=== PATIENT | female | born 1950 | race Caucasian/White ===

== ENCOUNTER → 2017-01-31 | Outpatient (CLI) | payer BC ==
[2017-01-31 10:16] LABS: CHOLESTEROL/HDL RATIO 2.1
== END | disposition home or self-care (01) ==
LOC: C.LAB 09:09
PROVIDERS: ATTEND Family Medicine
DX: E78.2 Mixed hyperlipidemia (principal); E16.2 Hypoglycemia, unspecified

== ENCOUNTER → 2017-07-11 | Outpatient (CLI) | payer BC ==
--- NOTE | 2017-07-11 13:54 | MAMMOGRAPHY REPORT ---
BILATERAL DIGITAL SCREENING MAMMOGRAM TOMOSYNTHESIS WITH CAD: 07/11/2017 CLINICAL HISTORY: Routine screening. Patient has no complaints. TECHNIQUE: Breast tomosynthesis in addition to standard 2D mammography was performed. Current study was also evaluated with a Computer Aided Detection (CAD) system. COMPARISON: Comparison is made to exams dated: 04/03/2016 mammogram, 04/14/2015 mammogram, 5 stereotactic biopsy, 04/04/2015 mammogram, 03/22/2015 mammogram, and 08/15/2010 mammogram - [facility]. BREAST COMPOSITION: There are scattered areas of fibroglandular density in both breasts. FINDINGS: No suspicious masses, calcifications, or areas of architectural distortion are noted in ei ther breast. There has been no significant interval change compared to prior exams. A biopsy clip is again noted in the left 12:00 breast. Left breast asymmetries are stable compared to prior exams. IMPRESSION: ACR BI-RADS CATEGORY 2: BENIGN There is no mammographic evidence of malignancy. A 1 year screening mammogram is recommended. The pa tient will receive written notification of the results. Approximately 10% of breast cancers are not detected with mammography. A negative mammographic report should not delay biopsy if a clinically suggestive mass is present. Lynette Mcnulty M.D. /:07/11/2017 12:45:18 Director Of Digital Technology: Vera Mosquera, [facility] letter sent: Normal 1/2 BI-RADS Code: ACR BI-RADS Category 2: Benign
== END | disposition home or self-care (01) ==
LOC: C.MAMM 10:40
PROVIDERS: ATTEND Family Medicine
DX: Z12.31 Encounter for screening mammogram for malignant neoplasm of breast (principal)

== ENCOUNTER 2022-03-25 17:11 | Observation (INO) ==
[2022-03-25 17:42] LABS: Basophils # (auto) 0.07 K/uL (0-0.2); Basophils % (auto) 0.6 %; Eosinophils # (auto) 0.48 K/uL (0-0.50); Hematocrit (blood only) 44.5 % (34.1-44.9); Hemoglobin 14.5 g/dl (12.0-16.0); Immature Granulocytes # (auto) 0.04 K/uL (0.00-0.02); Immature Granulocytes % (auto) 0.3 %; Lymphocytes # (auto) 1.36 K/uL (1.2-3.4); Lymphocytes % (auto) 11.4 %; Mean Corpuscular Hgb Conc 32.6 g/dL (32.0-36.0); Mean Corpuscular Volume 85.9 fL (80.0-100.0); Mean Platelet Volume 10.5 fL (9.4-12.3); Monocytes # (auto) 0.62 K/uL (0.24-0.82); Monocytes % (auto) 5.2 %; Neutrophils # (auto) 9.38 K/uL (1.4-6.5); Neutrophils % (auto) 78.5 %; Platelet Count 227 K/uL (130-400); RDW Coefficient of Variation 13.8 % (11.5-14.5); RDW Standard Deviation 43.1 fL (36.4-46.3); Red Blood Count 5.18 M/uL (3.93-5.22); White Blood Count 11.95 K/ul (4.8-10.8)
[2022-03-25 17:55] LABS: Partial Thromboplastin Time 26.5 Seconds (21.0-31.0); Prothrombin Time 10.4 Seconds (9.0-12.0)
[2022-03-25 18:06] LABS: Albumin Globulin Ratio 1.4 (0.9-2); Albumin Level 4.6 gm/dl (3.4-5.0); BUN Creatinine Ratio 18.6 (10-20); Bilirubin,Total 0.4 mg/dl (0.2-1.0); Calcium 9.9 mg/dl (8.5-10.1); Creatinine Clr Calc Pharmacy 45.3 ml/min; Est GFR (Non-African American) 56.1 ml/min; Globulin 3.2 gm/dl (2.5-4.0); Magnesium 1.7 mg/dl (1.7-2.4); Potassium 4.1 mmol/L (3.5-5.1); Total Protein 7.8 gm/dl (6.0-8.3)
[2022-03-25] MEDS ORDERED: OPTIRAY 320 500ml IV ONE (18:38)
--- NOTE | 2022-03-25 19:39 | XRay Report ---
XR chest 1V not portable HISTORY: 71 years-old Female SOB acute shortness of breath COMPARISON: None TECHNIQUE: PA view of the chest FINDINGS: Cardiomediastinal and hilar silhouettes are within normal limits. No pneumothorax, pleural effusion, airspace consolidation or overt pulmonary edema. Right shoulder rotator cuff calcific tendinosis. The bones appear grossly intact. IMPRESSION: No acute process. ACT 112: Negative or not required by law. The above report was generated using voice recognition software. It may contain grammatical, syntax o r spelling errors. Electronically signed by: Jeremy Molina M.D. 03/25/2022 6:14 PM
--- NOTE | 2022-03-25 19:40 | CT Scan Report ---
CT angio chest PE protocol CT DOSE: 319.94 mGy.cm HISTORY: 71 years-old Female with SOB, recent COVID, eval PE. Acute shortness of breath TECHNIQUE: Multiple CTA images of the chest were obtained after the intravenous administration of 85 ml Optiray. Coronal and sagittal MIPS were obtained from the axial data set and were submitted for r [employer]. All measurements were obtained according to NASCET criteria. A dose lowering technique was ut ilized adhering to the principles of ALARA. COMPARISON: Chest radiograph of same day FINDINGS: CTA: Mild cardiomegaly. There is no pericardial effusion. Mild coronary artery calcifications. No thoracic aortic aneurysm. Suboptimal violation of the pulmonary arterial tree secondary to contrast bolus and respiratory motion artifact. No central pulmonary emboli are identified. CT CHEST: No thyroid nodule or lymphadenopathy identified. Left Bochdalek hernia. No pneumothorax, pleural effu dodie, airspace consolidation or overt pulmonary edema. There are no suspicious pulmonary nodules or m asses identified. Central airways are patent. No acute process of the imaged upper abdomen. Hepatic steatosis. Unremarkable soft tissues. No acute fracture identified. Right shoulder rotator cuff calcific tendinosis. Degenerative changes of the vivian ulders and spine. Mild mid thoracic dextroscoliosis. 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 IMPRESSION: 1. No acute intrathoracic abnormality. 2. Limited evaluation of the pulmonary arterial tree as above. No central pulmonary emboli identified . 3. Hepatic steatosis. ACT 112: Negative or not required by law. The above report was generated using voice recognition software. It may contain grammatical, syntax o r spelling errors. Electronically signed by: Jeremy Molina M.D. 03/25/2022 6:54 PM
[2022-03-25] MEDS ORDERED: ALBUT/IPRATROP 3MG/0.5MG NEB 3 ML VIAL NEB ONE (19:51)
[2022-03-25] MEDS ORDERED: methylPREDNISolone 125 MG/2 ML VIAL IV STA (19:51)
[2022-03-25] MEDS ORDERED: guaiFENesin 600 MG TABCR PO STA (19:51)
[2022-03-25] MEDS ORDERED: SODIUM CHLORIDE 0.9% 1000ML 1,000 ML IV ONE (19:53)
[2022-03-25 20:08] LABS: Phosphorus 3.6 mg/dl (2.5-4.9)
[2022-03-25 20:21] LABS: Troponin I High Sensitivity 131.4 pg/ml (0-14)
--- NOTE | 2022-03-25 20:53 | Emergency Department Note ---
Impression & Plan Asthma exacerbation, Elevated troponin, Hypertension, Dyspnea on minimal exertion ED Provider Note NAME: RUBIA COLE AGE: 71 SEX: F ARRIVES VIA: Walk-In INFORMANT: Patient ED PROVIDER(S): Brian Blackmon MD CHIEF COMPLAINT: SOB, referred. PLAN: Disposition: Admit MEDICAL DECISION MAKING: The patient is a pleasant 71-year-old woman with a past medical history of hypertension, COVID-19 in beginning of February where she reports her more pronou nced symptoms resolved within the first week or so but her residual wheeze and cough never went away, who presents to the emergency department today referred by her PCPs office for worsening shortness of breath that began today where she feels she is wheezing more and cannot catch her breath. She denies chest pain, nausea, vomiting, diarrhea or urinary symptoms. She reports she has a history of asthma as a child and then once had wheezing with bronchitis but did not have chronic asthma per se. She reports she has been using her inhalers at home but does not feel they are helping. She denies n/v/d or symptoms. On arrival the patient is in no acute distress, afebrile with BP 190s/100s, HR 100s, with O2 saturation in the mid to upper 90s on room air. She has normal respiratory effort. She appears clinically dry. She has diffuse wheezes bilaterally. The patient did arrive to emergency department during a time of high volume and acuity with prolonged emergency department waiting times and critical pathways were initiated. Blood work and CT imaging were ordered. EKG demonstrates anterior T wave inversions without prior for comparison and no overt ST elevation or depression. Chest x-ray negative for acute cardiopulmonary process. WBC 11.9K nonspecific. H/H and platelets within normal limits. Chemistry without metabolic acidosis. Electrolytes and LFTs without significant abnormality. High-sensitivity troponin was elevated at 131, nonspecific but in the setting of her ongoing bronchospasm with shortness of breath and hypertension. CTA of the chest was performed and was negative for pneumonia or PE. No pleural effusions. Of note, the patient did ambulate to the bathroom and upon returning was with increased shortness of breath and O2 saturation was noted by RN to be 88-89% on room air with increased work of breathing and so was placed on supplemental oxygen. Given the patient's hypoxia with exertion and elevated troponin she did agree with plan for admission. Of note, the patient's blood pressure was elevated in the 190/100s however this was noted to improve with IV fluid hydration. Case was discussed with AILEEN White admitting resident with DARA De Leon hospitalist, who will evaluate the patient for admission. Triage Nursing notes reviewed and agree them. Prior medical records reviewed Differential diagnosis: Reactive airway disease, pneumonia, pneumothorax, COPD, CHF, infections, cardiac ischemia, pulmonary embolism, musculoskeletal, gastrointestinal, as well as other pathologies. ER treatment provided: See below. Diagnostics interpreted by me: ECG: Sinus tachycardia with first-degree AV block, 105 bpm, no ectopy, anterior T wave inversions are noted without prior EKG for comparison, no overt ST elevation or depression, QTC 45, QRS 66. Cardiac Monitoring: An order for continuous cardiac monitoring was placed and demonstrated Sinus tachycardia with first-degree AV block, 105 bpm, no ectopy. Laboratory studies: See below Imaging studies: See below Consultation(s): AILEEN White admitting resident with DARA De Leon hospitalist HPI: The patient is a pleasant 71-year-old woman with a past medical history of hypertension, COVID-19 in beginning of February where she reports her more pronounced symptoms resolved within the first week or so but her residual wheeze and cough never went away, who presents to the emergency department today referred by her PCPs office for worsening shortness of breath that began today where she feels she is wheezing more and cannot catch her breath. She denies chest pain, nausea, vomiting, diarrhea or urinary symptoms. She reports she has a history of asthma as a child and then once had wheezing with bronchitis but did not have chronic asthma per se. She reports she has been using her inhalers at home but does not feel they are helping. She denies n/v/d or symptoms. ROS: See above HPI for pertinent positives & negatives. A total of 10 systems reviewed and were otherwise negative. VITALS:See Below PHYSICAL EXAMINATION: GENERAL: Awake, alert, well-appearing, in no distress HENT: Normocephalic, atraumatic. Oropharynx with dry mucous membranes and otherwise unremarkable. EYES: Normal conjunctiva. Sclera non-icteric. NECK: Supple. No nuchal rigidity. FROM. No JVD. RESPIRATORY: Diffuse wheezes bilaterally. Normal respiratory effort. CARDIAC: Tachycardic rate, normal rhythm. Extremities warm and well perfused. Pulses equal. ABDOMEN: Soft, non-distended. No tenderness to palpation. No rebound or guarding. No masses. RECTAL: Deferred. MUSCULOSKELETAL: Chest examination reveals no tenderness. The back is symmetrical on inspection without obvious abnormality. There is no CVA tenderness to palpation. No joint edema. LOWER EXTREMITIES: Calves are equal size bilaterally and non-tender. No edema. No discoloration. NEURO: Normal sensorium. No sensory or motor deficits noted. SKIN: No rash or jaundice noted. 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 Hypertension Insomnia Osteopenia Surgical History History of dental surgery dental implant History of left breast biopsy benign History of tooth extraction Family History Mother Leukemia Cancer Hypertension Gall bladder disease Family history of diabetes mellitus Son Cancer Sister Hypertension Gall bladder disease Father Hypertension Grandmother (Maternal) Family history of diabetes mellitus Other No family history of adverse response to anesthesia Denies family history of Ovarian cancer Prostate cancer Myocardial infarction Breast cancer Colorectal cancer Social History Smoking Status: Never smoker Second Hand Exposure: No (parents smoked); Hx Alcohol Use: No Hx Substance Use: No Preferred Language: Tamazight Communication Ability: Effective Visual Impairment: No Limitations Hearing Ability: Normal Computer Customer Support Specialist Required: No Beliefs That Will Affect Care: None marital status: Current Living Situation: Spouse current occupational status: retired 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 Feels Safe at Home: Yes Childhood Exposure to Second-Hand Smoke: Yes caffeine: No Dental Care, Regularly: Yes Physical Activity Frequency: Does not Exercise Seatbelt Use: always Sunscreen Use: Yes Assistive Devices: Glasses Allergies Allergies Allergy/AdvReac Type Severity Reaction Status Date / Time No Known Allergies Allergy Verified 03/25/22 21:13 Home Meds Home Medications Medication Instructions Recorded Confirmed cholecalciferol (vitamin D3) 25 1,000 units PO QAM 01/14/19 03/25/22 mcg (1,000 unit) tablet multivitamin 1 tab PO DAILY 01/14/19 03/25/22 cyclobenzaprine 5 mg tablet 5 - 10 mg PO TID PRN muscle spasm 03/25/22 03/25/22 Previous Rx's Medication Instructions Recorded atenolol 25 mg tablet 25 mg PO DAILY #90 tabs 07/17/21 lisinopril 20 mg tablet 20 mg PO DAILY #90 tabs 08/21/21 sertraline 50 mg tablet 50 mg PO DAILY #90 tabs 10/24/21 alprazolam 0.5 mg tablet 0.5 mg PO Q8H PRN anxiety #30 tabs 12/07/21 albuterol sulfate 90 mcg/actuation 2 puff inhalation Q6H PRN 03/18/22 aerosol inhaler shortness of breath or wheezing #8.5 grams omeprazole 20 mg capsule,delayed 20 mg PO DAILY #90 caps 03/18/22 release Results & Data (ED) Vital Signs Vital Signs - 24 hr 03/25/22 17:15 03/25/22 19:12 03/25/22 19:27 Temperature 36.9 C Temperature Source Temporal Artery Scan Pulse Rate 111 H Pulse Rate [Apical] 110 H Respiratory Rate 20 20 Respiratory Effort / Characteristics Blood Pressure 192/96 H Blood Pressure [Right Arm] 194/115 H Blood Pressure Mean 128 Blood Pressure Mean [Right Arm] 141 Pulse Oximetry 96 98 98 Oxygen Delivery Method Room Air Room Air Oxygen Flow Rate Sepsis Recent Fever Within 48 Hours No Sepsis New/Unexplained Change in Mental Status N/A Sepsis Action Taken by Nursing No Action Required 03/25/22 20:42 03/25/22 20:25 03/25/22 20:48 Temperature Temperature Source Pulse Rate Pulse Rate [Apical] 105 H Respiratory Rate 26 H Respiratory Effort / Characteristics Spontaneous Blood Pressure Blood Pressure [Right Arm] Blood Pressure Mean Blood Pressure Mean [Right Arm] Pulse Oximetry 100 84 L 100 Oxygen Delivery Method Nasal Cannula Room Air Nasal Cannula Oxygen Flow Rate 2 2 Sepsis Recent Fever Within 48 Hours Sepsis New/Unexplained Change in Mental Status Sepsis Action Taken by Nursing Laboratory Data Attestation: I reviewed the patient's lab results. Result diagrams: 03/25/22 17:28 03/25/22 17:28 Lab Results 11/21/22 11/21/22 11/21/22 Range/Units 17:28 17:28 17:28 WBC 11.95 H (4.8-10.8) K/ul RBC 5.18 (3.93-5.22) M/uL Hgb 14.5 (12.0-16.0) g/dl Hct 44.5 (34.1-44.9) % MCV 85.9 (80.0-100.0) fL MCH 28.0 (25.0-34.0) pg MCHC 32.6 (32.0-36.0) g/dL RDW Std Deviation 43.1 (36.4-46.3) fL RDW Coeff of Otilia 13.8 (11.5-14.5) % Plt Count 227 (130-400) K/uL MPV 10.5 (9.4-12.3) fL Immature Gran % (Auto) 0.3 % Neut % (Auto) 78.5 % Lymph % (Auto) 11.4 % Mathews % (Auto) 5.2 % Eos % (Auto) 4.0 % Baso % (Auto) 0.6 % Neut # (Auto) 9.38 H (1.4-6.5) K/uL Lymph # (Auto) 1.36 (1.2-3.4) K/uL Mathews # (Auto) 0.62 (0.24-0.82) K/uL Eos # (Auto) 0.48 (0-0.50) K/uL Baso # (Auto) 0.07 (0-0.2) K/uL Immature Gran # (Auto) 0.04 H (0.00-0.02) K/uL PT 10.4 (9.0-12.0) Seconds INR 1.0 (0.9-1.1) APTT 26.5 (21.0-31.0) Seconds PTT Ratio 1.0 Sodium 141 (136-145) mmol/L Potassium 4.1 (3.5-5.1) mmol/L Chloride 104 (98-107) mmol/L Carbon Dioxide 29 (21-32) mmol/L Anion Gap 8 (3-11) BUN 19 (6-23) mg/dl Creatinine 1.02 (0.6-1.2) mg/dl Est Cr Clr Drug Dosing 45.3 ml/min Est GFR ( Amer) 65.0 ml/min Est GFR (Non-Af Amer) 56.1 ml/min BUN/Creatinine Ratio 18.6 (10-20) Glucose 135 H (70-99(Fasting)) mg/dl Calcium 9.9 (8.5-10.1) mg/dl Phosphorus (2.5-4.9) mg/dl Magnesium 1.7 (1.7-2.4) mg/dl Total Bilirubin 0.4 (0.2-1.0) mg/dl AST 23 (13-39) U/L ALT 23 (7-52) U/L Alkaline Phosphatase 58 (34-104) U/L Troponin I High Sens (0-14) pg/ml C-Reactive Protein (0-0.5) mg/dl Total Protein 7.8 (6.0-8.3) gm/dl Albumin 4.6 (3.4-5.0) gm/dl Globulin 3.2 (2.5-4.0) gm/dl Albumin/Globulin Ratio 1.4 (0.9-2) Procalcitonin (0-0.5) ng/ml Adenovirus (PCR) (NotDetected) B. pertussis DNA (PCR) (NotDetected) B.parapertussis DNA PCR (NotDetected) C. pneumoniae DNA (PCR) (NotDetected) Coronavirus OC43 (PCR) (NotDetected) Coronavirus HKU1 (PCR) (NotDetected) Coronavirus 229E (PCR) (NotDetected) SARS-CoV-2 (PCR) (NotDetected) Coronavirus NL63 (PCR) (NotDetected) Human Metapneumovir PCR (NotDetected) Influenza Type A (PCR) (NotDetected) Influenza Type B (PCR) (NotDetected) M. pneumoniae (PCR) (NotDetected) Parainfluenza 1 (PCR) (NotDetected) Parainfluenza 2 (PCR) (NotDetected) Parainfluenza 3 (PCR) (NotDetected) Parainfluenza 4 (PCR) (NotDetected) RSV (PCR) (NotDetected) Entero/Rhino (PCR) (NotDetected) 03/25/22 03/25/2203/25/22 Range/Units 17:28 17:28 20:18 WBC (4.8-10.8) K/ul RBC (3.93-5.22) M/uL Hgb (12.0-16.0) g/dl Hct (34.1-44.9) % MCV (80.0-100.0) fL MCH (25.0-34.0) pg MCHC (32.0-36.0) g/dL RDW Std Deviation (36.4-46.3) fL RDW Coeff of Otilia (11.5-14.5) % Plt Count (130-400) K/uL MPV (9.4-12.3) fL Immature Gran % (Auto) % Neut % (Auto) % Lymph % (Auto) % Mathews % (Auto) % Eos % (Auto) % Baso % (Auto) % Neut # (Auto) (1.4-6.5) K/uL Lymph # (Auto) (1.2-3.4) K/uL Mathews # (Auto) (0.24-0.82) K/uL Eos # (Auto) (0-0.50) K/uL Baso # (Auto) (0-0.2) K/uL Immature Gran # (Auto) (0.00-0.02) K/uL PT (9.0-12.0) Seconds INR (0.9-1.1) APTT (21.0-31.0) Seconds PTT Ratio Sodium (136-145) mmol/L Potassium (3.5-5.1) mmol/L Chloride (98-107) mmol/L Carbon Dioxide (21-32) mmol/L Anion Gap (3-11) BUN (6-23) mg/dl Creatinine (0.6-1.2) mg/dl Est Cr Clr Drug Dosing ml/min Est GFR ( Amer) ml/min Est GFR (Non-Af Amer) ml/min BUN/Creatinine Ratio (10-20) Glucose (70-99(Fasting)) mg/dl Calcium (8.5-10.1) mg/dl Phosphorus 3.6 (2.5-4.9) mg/dl Magnesium (1.7-2.4) mg/dl Total Bilirubin (0.2-1.0) mg/dl AST (13-39) U/L ALT (7-52) U/L Alkaline Phosphatase (34-104) U/L Troponin I High Sens 131.4 H* (0-14) pg/ml C-Reactive Protein (0-0.5) mg/dl Total Protein (6.0-8.3) gm/dl Albumin (3.4-5.0) gm/dl Globulin (2.5-4.0) gm/dl Albumin/Globulin Ratio (0.9-2) Procalcitonin < 0.05 (0-0.5) ng/ml Adenovirus (PCR) Not Detected (NotDetected) B. pertussis DNA (PCR) Not Detected (NotDetected) B.parapertussis DNA PCR Not Detected (NotDetected) C. pneumoniae DNA (PCR) Not Detected (NotDetected) Coronavirus OC43 (PCR) Not Detected (NotDetected) Coronavirus HKU1 (PCR) Not Detected (NotDetected) Coronavirus 229E (PCR) Not Detected (NotDetected) SARS-CoV-2 (PCR) Not Detected (NotDetected) Coronavirus NL63 (PCR) Not Detected (NotDetected) Human Metapneumovir PCR Not Detected (NotDetected) Influenza Type A (PCR) Not Detected (NotDetected) Influenza Type B (PCR) Not Detected (NotDetected) M. pneumoniae (PCR) Not Detected (NotDetected) Parainfluenza 1 (PCR) Not Detected (NotDetected) Parainfluenza 2 (PCR) Not Detected (NotDetected) Parainfluenza 3 (PCR) Not Detected (NotDetected) Parainfluenza 4 (PCR) Not Detected (NotDetected) RSV (PCR) Not Detected (NotDetected) Entero/Rhino (PCR) Not Detected (NotDetected) 03/25/22 Range/Units 21:23 WBC (4.8-10.8) K/ul RBC (3.93-5.22) M/uL Hgb (12.0-16.0) g/dl Hct (34.1-44.9) % MCV (80.0-100.0) fL MCH (25.0-34.0) pg MCHC (32.0-36.0) g/dL RDW Std Deviation (36.4-46.3) fL RDW Coeff of Otilia (11.5-14.5) % Plt Count (130-400) K/uL MPV (9.4-12.3) fL Immature Gran % (Auto) % Neut % (Auto) % Lymph % (Auto) % Mathews % (Auto) % Eos % (Auto) % Baso % (Auto) % Neut # (Auto) (1.4-6.5) K/uL Lymph # (Auto) (1.2-3.4) K/uL Mathews # (Auto) (0.24-0.82) K/uL Eos # (Auto) (0-0.50) K/uL Baso # (Auto) (0-0.2) K/uL Immature Gran # (Auto) (0.00-0.02) K/uL PT (9.0-12.0) Seconds INR (0.9-1.1) APTT (21.0-31.0) Seconds PTT Ratio Sodium (136-145) mmol/L Potassium (3.5-5.1) mmol/L Chloride (98-107) mmol/L Carbon Dioxide (21-32) mmol/L Anion Gap (3-11) BUN (6-23) mg/dl Creatinine (0.6-1.2) mg/dl Est Cr Clr Drug Dosing ml/min Est GFR ( Amer) ml/min Est GFR (Non-Af Amer) ml/min BUN/Creatinine Ratio (10-20) Glucose (70-99(Fasting)) mg/dl Calcium (8.5-10.1) mg/dl Phosphorus (2.5-4.9) mg/dl Magnesium (1.7-2.4) mg/dl Total Bilirubin (0.2-1.0) mg/dl AST (13-39) U/L ALT (7-52) U/L Alkaline Phosphatase (34-104) U/L Troponin I High Sens 133.4 H* (0-14) pg/ml C-Reactive Protein 0.71 H (0-0.5) mg/dl Total Protein (6.0-8.3) gm/dl Albumin (3.4-5.0) gm/dl Globulin (2.5-4.0) gm/dl Albumin/Globulin Ratio (0.9-2) Procalcitonin (0-0.5) ng/ml Adenovirus (PCR) (NotDetected) B. pertussis DNA (PCR) (NotDetected) B.parapertussis DNA PCR (NotDetected) C. pneumoniae DNA (PCR) (NotDetected) Coronavirus OC43 (PCR) (NotDetected) Coronavirus HKU1 (PCR) (NotDetected) Coronavirus 229E (PCR) (NotDetected) SARS-CoV-2 (PCR) (NotDetected) Coronavirus NL63 (PCR) (NotDetected) Human Metapneumovir PCR (NotDetected) Influenza Type A (PCR) (NotDetected) Influenza Type B (PCR) (NotDetected) M. pneumoniae (PCR) (NotDetected) Parainfluenza 1 (PCR) (NotDetected) Parainfluenza 2 (PCR) (NotDetected) Parainfluenza 3 (PCR) (NotDetected) Parainfluenza 4 (PCR) (NotDetected) RSV (PCR) (NotDetected) Entero/Rhino (PCR) (NotDetected) Administered Medications Discontinued Medications Albuterol (Albut/Ipratrop 3mg/0.5mg Neb 3 Ml Vial) 12 ml NEB ONE ONE; Protocol Stop: 03/25/22 19:52 Last Admin: 03/25/22 20:39 Dose: 12 ml Documented By: AYSHA Guaifenesin (Guaifenesin 600 Mg Tabcr) 1,200 mg PO NOW STA Stop: 03/25/22 19:52 Last Admin: 03/25/22 20:13 Dose: 1,200 mg Documented By: SIERRA Sodium Chloride (Nss 1000ml) 1,000 mls @ 999 mls/hr IV .Q1H1M ONE Stop: 03/25/22 20:53 Last Infusion: 03/25/22 23:17 Dose: 0 mls/hr Documented By: Admin: 03/25/22 20:12 Dose: 999 mls/hr Documented By: SIERRA Ioversol (Optiray 320 500ml) 85 ml IV ONCE ONE Stop: 03/25/22 18:39 Last Admin: 03/25/22 18:38 Dose: 85 ml Documented By: JOE Methylprednisolone (Methylprednisolone 125 Mg/2 Ml Vial) 125 mg IV NOW STA Stop: 03/25/22 19:52 Last Admin: 03/25/22 20:13 Dose: 125 mg Documented By: SIERRA Imaging Data Radiologist's Impression: Chest X-Ray 03/25/22 17:20 XR chest 1V not portable HISTORY: 71 years-old Female SOB acute shortness of breath COMPARISON: None TECHNIQUE: PA view of the chest FINDINGS: Cardiomediastinal and hilar silhouettes are within normal limits. No pneumothorax, pleural effusion, airspace consolidation or overt pulmonary edema. Right shoulder rotator cuff calcific tendinosis. The bones appear grossly intact. IMPRESSION: No acute process. ACT 112: Negative or not required by law. The above report was generated using voice recognition software. It may contain grammatical, syntax or spelling errors. Electronically signed by: Jeremy Molina M.D. 03/25/2022 6:14 PM Chest CTA 03/25/22 17:34 CT angio chest PE protocol CT DOSE: 319.94 mGy.cm HISTORY: 71 years-old Female with SOB, recent COVID, eval PE. Acute shortness of breath TECHNIQUE: Multiple CTA images of the chest were obtained after the intravenous administration of 85 ml Optiray. Coronal and sagittal MIPS were obtained from the axial data set and were submitted for review. All measurements were obtained according to NASCET criteria. A dose lowering technique was utilized adhering to the principles of ALARA. COMPARISON: Chest radiograph of same day FINDINGS: CTA: Mild cardiomegaly. There is no pericardial effusion. Mild coronary artery calcifications. No thoracic aortic aneurysm. Suboptimal violation of the pulmonary arterial tree secondary to contrast bolus and respiratory motion artifact. No central pulmonary emboli are identified. CT CHEST: No thyroid nodule or lymphadenopathy identified. Left Bochdalek hernia. No pneumothorax, pleural effusion, airspace consolidation or overt pulmonary edema. There are no suspicious pulmonary nodules or masses identified. Central airways are patent. No acute process of the imaged upper abdomen. Hepatic steatosis. Unremarkable soft tissues. No acute fracture identified. Right shoulder rotator cuff calcific tendinosis. Degenerative changes of the shoulders and spine. Mild mid thoracic dextroscoliosis. 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 IMPRESSION: 1. No acute intrathoracic abnormality. 2. Limited evaluation of the pulmonary arterial tree as above. No central pulmonary emboli identified. 3. Hepatic steatosis. ACT 112: Negative or not required by law. The above report was generated using voice recognition software. It may contain grammatical, syntax or spelling errors. Electronically signed by: Jeremy Molina M.D. 03/25/2022 6:54 PM Discharge Plan Visit Data Chief Complaint: Shortness of Breath/Dyspnea Stated Complaint: SOB,COUGH,WHEEZING, ED Provider: Brian Blackmon Discharge Problem: Asthma exacerbation, Elevated troponin, Hypertension, Dyspnea on minimal e xertion Discharge Instructions Interventions: ED Discharge Assessment Last Done: 03/25/22 23:56
--- NOTE | 2022-03-25 20:59 | History & Physical Report ---
Date of Service March 25, 2022 Assessment & Plan (1) Asthma exacerbation: Plan: [id number] in severity. Likely exacerbated by COVID-19 and possibly further exacerbated by another respiratory viral illness. - respiratory biofire lepe-negative - procalcitonin negative, check CRP - s/p SoluMedrol 125mg in ED - continue with 40mg IV BID starting in AM - s/p Albuterol nebs in ED - continue with Xopenex Q6H scheduled and Q2H PRN (tachycardia) - continue pulmonary toilet: Mucinex 1200mg PO BID, incentive spirometry Q1HWA - currently on 2L/min NC (none at home) - wean as tolerated (2) Elevated troponin: Plan: hsTroponin 131.4, EKG with T-wave inversions in anterior leads but no ST abnormalities. Patient denies chest pain. Likely due to demand ischemia in context of asthma/tachycardia/hypertension. - check hsTroponin now and again in AM - PRN SL Nitro and PRN EKG for chest pain (3) Hypertension: Plan: Uncontrolled in the ED with BP up to 194/115 but thankfully down to 150s/100s on my examination. Likely in context of acute problems listed above. - continue home Atenolol and Lisinopril (last took earlier today) - PRN Lopressor 5mg IV for SBP >190 and/or DBP >110 (if HR tolerates) (4) GERD (gastroesophageal reflux disease): Plan: Protonix per hospital formulary (5) Grief reaction with prolonged bereavement: Plan: Continue home Xanax 0.5mg PO Q8H PRN as well as home Sertraline Plan FEN/GI: regular diet DVT Prophylaxis: Lovenox SQ Code Status: full code Disposition: med/tele History of Present Illness Chief Complaint: dyspnea Primary Care Provider: Lala Garcia MD Denise Aj is a 71yo female with PMHx significant for asthma, HTN, GERD, depression and h/o COVID-19 in early February who presented to [facility] ED on 03/25 for worsening shortness of breath and wheezing x1 day. Of note the patient had upper respiratory symptoms as well as cough/wheezing with her COVID-19 infection, and the cough/wheezing had persisted since onset of that infection. Patient saw her PCP 1 week ago for persistent symptoms and has taken Albuterol inhaler TID since then, without improvement in symptoms. Then patient developed shortness of breath, mostly with physical exertion, in addition to persistence cough/wheezing over last 24 hours so she came to ED. Patient had more significant asthma history as a child and also sometimes gets wheezing with colds/bronchitis that improves with Albuterol. Patient is a never smoker and denies alcohol/drug use. She is proficient in ADLs/iADLs and lives with her . In the ED the patient was hypertensive to 194/115 and tachycardic in 100s-110s. Tachypneic in mid 20s and SpO2 down to 84% on room air but improved to high 90s on 2L/min nasal cannula. EKG with sinus tachycardia 1st degree AV block and anterior T-wave inversions without ST abnormalities. Labs significant for hsTroponin 131.4 and WBC 11.95 (neutrophilic predominance and minimal L shift). Procalcitonin negative. Respiratory BioFire lepe-negative. Imaging unremarkable: CXR without consolidations/opacities and CTA chest without evidence of PE. Patient was given 1L NSS bolus, Albuterol nebs x1, Mucinex 1200mg PO, and SoluMedrol 125mg IV x1. Allergies Allergy/AdvReac Type Severity Reaction Status Date / Time No Known Allergies Allergy Verified 03/25/22 21:13 Home Medications Medication Instructions Recorded Confirmed Type cholecalciferol (vitamin D3) 25 1,000 units PO QAM 01/14/19 03/25/22 History mcg (1,000 unit) tablet multivitamin 1 tab PO DAILY 01/14/19 03/25/22 History atenolol 25 mg tablet 25 mg PO DAILY #90 tabs 07/17/21 03/25/22 Rx lisinopril 20 mg tablet 20 mg PO DAILY #90 tabs 08/21/21 03/25/22 Rx sertraline 50 mg tablet 50 mg PO DAILY #90 tabs 10/24/21 03/25/22 Rx alprazolam 0.5 mg tablet 0.5 mg PO Q8H PRN anxiety #30 tabs 12/07/21 03/25/22 Rx omeprazole 20 mg capsule,delayed 20 mg PO DAILY #90 caps 03/18/22 03/25/22 Rx release cyclobenzaprine 5 mg tablet 5 - 10 mg PO TID PRN muscle spasm 03/25/22 03/25/22 History albuterol sulfate 90 mcg/actuation 2 puff inhalation Q6H PRN 03/26/22 Rx aerosol inhaler shortness of breath or wheezing #8.5 grams prednisone 20 mg tablet 40 mg PO DAILY 5 days #10 tabs 03/26/22 Rx Past Med/Surg History Medical History GERD (gastroesophageal reflux disease) Grief reaction with prolonged bereavement History of melanoma upper back Hypertension Insomnia Osteopenia Surgical History History of dental surgery dental implant History of left breast biopsy benign History of tooth extraction Family History Mother Leukemia Cancer Hypertension Gall bladder disease Family history of diabetes mellitus Son Cancer Sister Hypertension Gall bladder disease Father Hypertension Grandmother (Maternal) Family history of diabetes mellitus Other No family history of adverse response to anesthesia Denies family history of Ovarian cancer Prostate cancer Myocardial infarction Breast cancer Colorectal cancer Social History Smoking Status: Never smoker Second Hand Exposure: No; Do You Dip or Chew Tobacco: No; Tobacco Cessation Education Requested by Patient: No Hx Alcohol Use: No Hx Substance Use: No Preferred Language: Kazakh Communication Ability: Effective Visual Impairment: No Limitations Hearing Ability: Normal Accounts Receivable Associate Required: No Beliefs That Will Affect Care: None marital status: Current Living Situation: Spouse current occupational status: retired 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 NAD. Cooperative. Albuterol nebulizer currently in place and running. HEENT: Atraumatic, normocephalic. Pulm: Bilateral wheezes but adequate aeration bilaterally. No crackles. Symm etrical chest rise. No increase work of breathing. No respiratory distress. Cardiac: RRR, -mrg. Radial pulses intact and symmetrical. No LE edema. Abdominal: soft, non-tender, non-distended, BS x 4 Skin: warm, dry, no rash Results & Data Results & Data ([facility]) Vital Signs (Past 12 Hours) Vital Signs Temp Pulse Pulse Resp BP BP Pulse Ox 03/25/22 20:48 100 03/25/22 20:25 84 L 03/25/22 20:42 105 H 26 H 100 03/25/22 19:27 98 03/25/22 19:12 110 H 20 194/115 H 98 03/25/22 17:15 36.9 C 111 H 20 192/96 H 96 O2 Del Method O2 Flow Rate 03/25/22 20:48 Nasal Cannula 2 03/25/22 20:25 Room Air 03/25/22 20:42 Nasal Cannula 2 03/25/22 19:27 Room Air 03/25/22 19:12 03/25/22 17:15 Room Air Supervising Physician Co-Signing Physician Notes Attending addendum: I have physically seen this patient, have supervised the medical residents activities, and agree with the H&P unless as otherwise noted. Assessment and Plan: Asthma exacerbation- Given Solu-Medrol 125 mg IV in ED continue 40 mg IV twice daily Xopenex every 4 hours while awake and every 2 hours when necessary. Mucinex 1200 mg p.o. twice daily Incentive spirometry Nasal cannula oxygen, titrate to keep pulse ox 92-94% Elevated troponin/hypertension- 131.4 on admission The patient will be admitted to telemetry for serial cardiac enzymes, serial EKG's, cardiac rhythm monitoring and a 2-D echocardiogram with Dopplers. Continue atenolol and lisinopril Lopressor 5 mg IV every 4 hours. Systolic blood pressure greater than 190 GERD- Protonix Remaining orders and notations as noted Resident Activity Tracking Resident Involvement: Resident Care Provided Care Provided: Adult Hospital Medicine
[2022-03-25 21:12] LABS: Adenovirus PCR Not Detected (NotDetected); Bordetella parapertussis PCR Not Detected (NotDetected); Bordetella pertussis PCR Not Detected (NotDetected); Chlamydia pneumoniae PCR Not Detected (NotDetected); Coronavirus 229E PCR Not Detected (NotDetected); Coronavirus CoV-2 (COVID19)PCR Not Detected (NotDetected); Coronavirus HKU1 PCR Not Detected (NotDetected); Coronavirus NL63 PCR Not Detected (NotDetected); Coronavirus OC43PCR Not Detected (NotDetected); Human Metapneumovirus PCR Not Detected (NotDetected); Influenza A PCR Not Detected (NotDetected); Influenza B PCR Not Detected (NotDetected); Mycoplasma pneumoniae PCR Not Detected (NotDetected); Parainfluenza Virus 1 PCR Not Detected (NotDetected); Parainfluenza Virus 2 PCR Not Detected (NotDetected); Parainfluenza Virus 3 PCR Not Detected (NotDetected); Parainfluenza Virus 4 PCR Not Detected (NotDetected); Respiratory Syncytial VirusPCR Not Detected (NotDetected); Rhinovirus/Enterovirus PCR Not Detected (NotDetected)
[2022-03-25 22:01] LABS: Troponin I High Sensitivity 133.4 pg/ml (0-14)
[2022-03-25 22:03] LABS: C Reactive Protein 0.71 mg/dl (0-0.5)
[2022-03-25] MEDS ORDERED: METOPROLOL TARTRATE 1 MG/ML VIAL IV PRN (23:59)
[2022-03-25] MEDS ORDERED: NITROGLYCERIN SL 0.4 MG/TAB TAB SL PRN (23:59)
[2022-03-25] MEDS ORDERED: ALPRAZolam 0.5 MG TABLET PO PRN (23:59)
[2022-03-25] MEDS ORDERED: LEVALBUTEROL HCL 0.63 MG/3 ML NEB NEB PRN (23:59)
[2022-03-25] MEDS ORDERED: ACETAMINOPHEN 500 MG TAB PO PRN (23:59)
[2022-03-26] MEDS: LEVALBUTEROL HCL 0.63 MG/3 ML NEB NEB SCH ×3 (00:41→13:19)
[2022-03-26] MEDS ORDERED: ENOXAPARIN INJ 40 MG/0.4 ML SYR SQ SCH (06:00)
[2022-03-26 06:56] LABS: Hematocrit (blood only) 40.6 % (34.1-44.9); Hemoglobin 13.4 g/dl (12.0-16.0); Mean Corpuscular Hemoglobin 28.1 pg (25.0-34.0); Mean Corpuscular Volume 85.1 fL (80.0-100.0); Mean Platelet Volume 10.3 fL (9.4-12.3); Platelet Count 209 K/uL (130-400); RDW Coefficient of Variation 13.8 % (11.5-14.5); RDW Standard Deviation 42.9 fL (36.4-46.3); Red Blood Count 4.77 M/uL (3.93-5.22); White Blood Count 11.71 K/ul (4.8-10.8)
[2022-03-26] MEDS ORDERED: Flu Vaccine-High Dose (Fluzone-HD) PF 65+ 0.7mL SYR IM ONE (07:15)
[2022-03-26 07:18] LABS: Basophils # (auto) 0.01 K/uL (0-0.2); Basophils % (auto) 0.1 %; Immature Granulocytes # (auto) 0.07 K/uL (0.00-0.02); Immature Granulocytes % (auto) 0.6 %; Lymphocytes # (auto) 0.59 K/uL (1.2-3.4); Monocytes # (auto) 0.09 K/uL (0.24-0.82); Monocytes % (auto) 0.8 %; Neutrophils # (auto) 10.95 K/uL (1.4-6.5); Neutrophils % (auto) 93.5 %
--- NOTE | 2022-03-26 07:21 | Hospitalist Progress Note ---
Date of Service March 26, 2022 Assessment & Plan (1) Asthma exacerbation: Plan: [id number] in severity. Likely exacerbated by COVID-19 and possibly further exacerbated by another respiratory viral illness. - respiratory biofire lepe-negative - procalcitonin negative, check CRP - s/p SoluMedrol 125mg in ED - continue with 40mg IV BID starting in AM - s/p Albuterol nebs in ED - continue with Xopenex Q6H scheduled and Q2H PRN (tachycardia) - continue pulmonary toilet: Mucinex 1200mg PO BID, incentive spirometry Q1HWA - currently on 2L/min NC (none at home) - wean as tolerated (2) Elevated troponin: Plan: hsTroponin 131.4, EKG with T-wave inversions in anterior leads but no ST abnormalities. Patient denies chest pain. Likely due to demand ischemia in context of asthma/tachycardia/hypertension. - check hsTroponin now and again in AM - PRN SL Nitro and PRN EKG for chest pain (3) Hypertension: Plan: Uncontrolled in the ED with BP up to 194/115 but thankfully down to 150s/100s on my examination. Likely in context of acute problems listed above. - continue home Atenolol and Lisinopril (last took earlier today) - PRN Lopressor 5mg IV for SBP >190 and/or DBP >110 (if HR tolerates) (4) GERD (gastroesophageal reflux disease): Plan: Protonix per hospital formulary (5) Grief reaction with prolonged bereavement: Plan: Continue home Xanax 0.5mg PO Q8H PRN as well as home Sertraline Plan FEN/GI: regular diet DVT ppx: Lovenox SQ Code Status: full Disposition: med/tele Admission and Anticipated Discharge Date Admission Date: March 25, 2022 Subjective Pt is a 71 yo female with PMH of asthma, GERD, HTN, osteopenia, and melanoma presenting with increased SOB and wheezing. Physical Exam Constitutional: NAD. Vitals WNL. Eyes: no conjunctival abnormality Respiratory: CTA bilaterally. No rhonchi, wheezing, or crackles. Non labored breathing. Cardiovascular: RRR. No murmur noted. No LL edema. Gastrointestinal (Abdomen): Nontender, +BS. No masses noted. Skin: no rashes, warm and dry Psychiatric: Alert. Mood and affect congruent. Results & Data Results & Data ([facility]) Vital Signs (Past 12 Hours) Vital Signs Temp Pulse Pulse Resp BP BP BP 03/26/22 07:01 36.6 C 105 H 18 134/81 03/26/22 02:40 36.8 C 116 H 17 145/82 H 03/26/22 00:41 117 H 20 03/26/22 00:00 03/26/22 00:38 115 H 162/88 H 03/25/22 23:59 37.0 C 122 H 20 190/110 H 03/26/22 00:01 37.0 C 129 H 22 193/110 H 03/25/22 23:56 120 H 20 183/110 H 03/25/22 22:00 120 H 18 169/117 H 03/25/22 20:48 03/25/22 20:25 03/25/22 20:42 105 H 26 H 03/25/22 19:27 Pulse Ox O2 Del Method O2 Flow Rate 03/26/22 07:01 100 Nasal Cannula 2 03/26/22 02:40 97 Nasal Cannula 2 03/26/22 00:41 96 Nasal Cannula 3 03/26/22 00:00 Room Air, Nasal Cannula 3 03/26/22 00:38 98 Nasal Cannula 3 03/25/22 23:59 98 Nasal Cannula 3 03/26/22 00:01 95 Room Air 03/25/22 23:56 94 03/25/22 22:00 95 03/25/22 20:48 100 Nasal Cannula 2 03/25/22 20:25 84 L Room Air 03/25/22 20:42 100 Nasal Cannula 2 03/25/22 19:27 98 Room Air Resident Activity Tracking Resident Involvement: Resident Care Provided Care Provided: Adult Hospital Medicine
[2022-03-26 07:35] LABS: BUN Creatinine Ratio 17.5 (10-20); Calcium 9.4 mg/dl (8.5-10.1); Creatinine Clr Calc Pharmacy 47.6 ml/min; Est GFR (African American) 69.1 ml/min; Est GFR (Non-African American) 59.6 ml/min; Magnesium 1.5 mg/dl (1.7-2.4); Potassium 4.1 mmol/L (3.5-5.1)
[2022-03-26 07:36] LABS: Troponin I High Sensitivity 116.5 pg/ml (0-14)
[2022-03-26] MEDS: MAGNESIUM SULFATE / D5W 1 GM/100 ML BAG IV SCH ×2 (08:22→10:09)
[2022-03-26] MEDS ORDERED: lisinopril 20 MG TAB PO SCH (09:00)
[2022-03-26] MEDS ORDERED: PANTOprazole 40 MG TAB PO SCH (09:00)
[2022-03-26] MEDS ORDERED: guaiFENesin 600 MG TABCR PO SCH (09:00)
[2022-03-26] MEDS ORDERED: methylPREDNISolone 40 MG in SYRINGE 0 ML IV SCH (09:00)
[2022-03-26] MEDS ORDERED: ATENOLOL 25 MG TABLET PO SCH (09:00)
[2022-03-26] MEDS ORDERED: SERTRALINE HCL 50 MG TABLET PO SCH (09:00)
--- NOTE | 2022-03-26 17:29 | Discharge Summary ---
Date of Service March 26, 2022 Admission HPI Per Admitting Provider Denise Aj is a 71yo female with PMHx significant for asthma, HTN, GERD, depression and h/o COVID-19 in early February who presented to [facility] ED on 03/25 for worsening shortness of breath and wheezing x1 day. Of note the patient had upper respiratory symptoms as well as cough/wheezing with her COVID-19 infection, and the cough/wheezing had persisted since onset of that infection. Patient saw her PCP 1 week ago for persistent symptoms and has taken Albuterol inhaler TID since then, without improvement in symptoms. Then patient developed shortness of breath, mostly with physical exertion, in addition to persistence cough/wheezing over last 24 hours so she came to ED. Patient had more significant asthma history as a child and also sometimes gets wheezing with colds/bronchitis that improves with Albuterol. Patient is a never smoker and denies alcohol/drug use. She is proficient in ADLs/iADLs and lives with her . In the ED the patient was hypertensive to 194/115 and tachycardic in 100s-110s. Tachypneic in mid 20s and SpO2 down to 84% on room air but improved to high 90s on 2L/min nasal cannula. EKG with sinus tachycardia 1st degree AV block and anterior T-wave inversions without ST abnormalities. Labs significant for hsTroponin 131.4 and WBC 11.95 (neutrophilic predominance and minimal L shift). Procalcitonin negative. Respiratory BioFire lepe-negative. Imaging unremarkable: CXR without consolidations/opacities and CTA chest without evidence of PE. Patient was given 1L NSS bolus, Albuterol nebs x1, Mucinex 1200mg PO, and SoluMedrol 125mg IV x1. Admission Exam Per Admitting Provider General: A&Ox3. NAD. Cooperative. Albuterol nebulizer currently in place and running. HEENT: Atraumatic, normocephalic. Pulm: Bilateral wheezes but adequate aeration bilaterally. No crackles. Symmetrical chest rise. No increase work of breathing. No respiratory distress. Cardiac: RRR, -mrg. Radial pulses intact and symmetrical. No LE edema. Abdominal: soft, non-tender, non-distended, BS x 4 Skin: warm, dry, no rash Principal Diagnosis sequelae of viral respiratory infection, possible asthma exacerbation Discharge Exam Constitutional NAD. Vitals WNL. O2 sats in mid 90s on RA Respiratory CTA bilaterally. No wheezing, rhonchi, or crackles. Non labored breathing. Cardiovascular Regular rhythm. Slightly tachycardic. No murmur noted. No LE edema. Gastrointestinal (Abdomen) Soft, nontender. +BS. No masses noted. Psychiatric Alert. Mood and affect congruent. Discharge Data Allergies Allergy/AdvReac Type Severity Reaction Status Date / Time No Known Allergies Allergy Verified 03/25/22 21:13 Consultations 03/25/22 20:47 ED Decision to Admit Stat Ordered Studies 03/25/22 17:34 CT angio chest PE protocol Stat Chest X-Ray 03/25/22 17:20 XR chest 1V not portable HISTORY: 71 years-old Female SOB acute shortness of breath COMPARISON: None TECHNIQUE: PA view of the chest FINDINGS: Cardiomediastinal and hilar silhouettes are within normal limits. No pneumothorax, pleural effusion, airspace consolidation or overt pulmonary edema. Right shoulder rotator cuff calcific tendinosis. The bones appear grossly intact. IMPRESSION: No acute process. ACT 112: Negative or not required by law. The above report was generated using voice recognition software. It may contain grammatical, syntax or spelling errors. Electronically signed by: Jeremy Molina M.D. 03/25/2022 6:14 PM Chest CTA 03/25/22 17:34 CT angio chest PE protocol CT DOSE: 319.94 mGy.cm HISTORY: 71 years-old Female with SOB, recent COVID, eval PE. Acute shortness of breath TECHNIQUE: Multiple CTA images of the chest were obtained after the intravenous administration of 85 ml Optiray. Coronal and sagittal MIPS were obtained from the axial data set and were submitted for review. All measurements were obtained according to NASCET criteria. A dose lowering technique was utilized adhering to the principles of ALARA. COMPARISON: Chest radiograph of same day FINDINGS: CTA: Mild cardiomegaly. There is no pericardial effusion. Mild coronary artery calcifications. No thoracic aortic aneurysm. Suboptimal violation of the pulmonary arterial tree secondary to contrast bolus and respiratory motion artifact. No central pulmonary emboli are identified. CT CHEST: No thyroid nodule or lymphadenopathy identified. Left Bochdalek hernia. No pneumothorax, pleural effusion, airspace consolidation or overt pulmonary edema. There are no suspicious pulmonary nodules or masses identified. Central airways are patent. No acute process of the imaged upper abdomen. Hepatic steatosis. Unremarkable soft tissues. No acute fracture identified. Right shoulder rotator cuff calcific tendinosis. Degenerative changes of the shoulders and spine. Mild mid thoracic dextroscoliosis. 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 IMPRESSION: 1. No acute intrathoracic abnormality. 2. Limited evaluation of the pulmonary arterial tree as above. No central pulmonary emboli identified. 3. Hepatic steatosis. ACT 112: Negative or not required by law. The above report was generated using voice recognition software. It may contain grammatical, syntax or spelling errors. Electronically signed by: Jeremy Molina M.D. 03/25/2022 6:54 PM Hospital Course (1) Asthma exacerbation: Mild in severity. Likely exacerbated by COVID-19 and possibly further exacerbated by another respiratory viral illness. - respiratory biofire lepe-negative - procalcitonin negative, CRP 0.71 - s/p SoluMedrol 125mg in ED - continue with 40mg IV BID starting in AM - given albuterol nebulizer, mucinex, and incentive spirometry - required 2L NC oxygen, weaned from this. Discharged with O2 sats in mid 90s on RA - d/c with 40 mg daily prednisone x5 days, albuterol inhaler PRN - f/u with PCP for further monitoring, recommend outpatient PFTs if symptoms persist (2) Elevated troponin: First hsTroponin 131.4, EKG with T-wave inversions in anterior leads but no ST abnormalities. Patient denies chest pain. Likely due to demand ischemia in context of asthma/tachycardia/hypertension. - repeat troponins downtrended to 116 - repeat EKG neg for ischemic change (3) Hypertension: - Uncontrolled in the ED with BP up to 194/115 - Likely in context of acute problems listed above. - continue home Atenolol and Lisinopril - reevaluate as outpatient (4) GERD (gastroesophageal reflux disease): Protonix per hospital formulary (5) Grief reaction with prolonged bereavement: Continue home Xanax 0.5mg PO Q8H PRN as well as home Sertraline Plan FEN/GI: regular diet DVT ppx: Lovenox SQ Code Status: full Disposition: home Total Time Total Time Spent Total Time Spent (In Minutes): <30 Discharge Plan Discharge Items Patient Disposition: Home - Self-Care Reason For Visit: ASTHMA EXACERBATION Discharge Diagnosis: viral respiratory infection, possible asthma exacerbation Activity: Resume your previous activity Non-emergency contact: Primary Care Provider Call non-emergency contact if: you have any medication questions and your symp toms worsen Follow-up/Referrals: Lala Garcia MD [Primary Care Provider] - Diet: Regular Addtl Attending Provider Instructions: You were admitted to the hospital for shortness of breath related to an asthma exacerbation. You were treated with steroids, mucinex, oxygen, and nebulizer treatments. Your breathing improved with these interventions. A discharge summary will be sent to your primary care physician to ensure continuity of care. Please bring this discharge summary with you to your next office appointment so that your provider can review it at that time. Medications: Your medication list has been reviewed and reconciled upon discharge to ensure accuracy and continuity of care. An updated list of all your medications is included with your hospital discharge paperwork. Please review this list closely and make note of any changes to your medications. - A prescription of prednisone 40 mg (2 pills) was sent to your pharmacy. You should take two pills daily for 5 days. - An albuterol inhaler was also sent. You can use this inhaler up to four times a day as needed. - Otherwise, continue all your home medications as before hospitalization. Follow up appointments: - Make a follow up appointment with your PCP within the next week. It is very important that you follow up with them shortly after discharge from the hospital. - Keep all of your follow up appointments as already scheduled. If you cannot make an appointment, notify your provider. CONTACT YOUR PRIMARY CARE PROVIDER if you experience any of the following: - Coughing that worsens after your steroid runs out - Feeling short of breath while exerting yourself - Difficulty following your treatment plan - Difficulty taking any of your medications CALL 911 OR GO TO THE EMERGENCY DEPARTMENT if you experience any of the following: - Inability to catch your breath - Sudden, severe abdominal pain or nausea/vomiting - Severe chest pain or chest pain that radiates to your jaw or arm - Sudden, severe shortness of breath or difficulty breathing Pending Studies at Discharge: No Stand-Alone Forms: My [employer], Smoking Cessation Medications and DC Order Prescriptions: New prednisone 20 mg tablet 40 mg PO DAILY 5 Days Qty: 10 0RF Rx Instructions: Take 2 pills in the morning for 5 days (until the pills run out) Continued atenolol 25 mg tablet 25 mg PO DAILY Qty: 90 3RF lisinopril 20 mg tablet 20 mg PO DAILY Qty: 90 3RF sertraline 50 mg tablet 50 mg PO DAILY Qty: 90 3RF alprazolam 0.5 mg tablet 0.5 mg PO Q8H PRN (Reason: anxiety) Qty: 30 0RF omeprazole 20 mg capsule,delayed release(DR/EC) 20 mg PO DAILY Qty: 90 3RF multivitamin tablet 1 tab PO DAILY cholecalciferol (vitamin D3) 1,000 unit (25 mcg) tablet 1,000 units PO QAM cyclobenzaprine 5 mg tablet 5 - 10 mg PO TID PRN (Reason: muscle spasm) albuterol sulfate 90 mcg/actuation HFA aerosol inhaler 2 puff inhalation Q6H PRN (Reason: shortness of breath or wheezing) Qty: 8.5 1RF Discharge Orders: Discharge Order (Routine); Ordered 03/26/22 Ordered By: Corazon Tobar/Other Patient Handouts: Discharge Instructions for Asthma, Controlling Your Asthma, Asthma Admission Data Admit Date/Time: 03/25/22 21:46 Attending Provider: Elkin Aguirre Admit Provider: Armando Abarca Primary Care Provider: Lala Garcia Other Providers: Kevin Iglesias Other Interventions: Discharge Summary Assessment (RN) Last Done: 03/26/22 18:01 Supervising Physician Co-Signing Physician Notes I personally examined the patient and verified all awan points of history and exam, discussed case, and agree with decision making with Dr Gongora Feeling better breathing better and would like to go home. Has not had trouble with wheezing or breathing outside of this acute episode. Notes she had asthma as a kid but really her mom told her she does not remember herself. Vitals noted, in general she is awake and alert pleasant no distress. HEENT normocephalic atraumatic mucous membranes moist. Lungs are clear to auscultation bilaterally no rales rhonchi or wheezes good effort. Cardio regular. Skin shows no rashes no pallor or icterus. Wheezingpossibly bronchitisimproved with steroids. Doubt she has chronic lung disease given that she has not had problems until this acute episodeit is coming on the tail end of having recently had COVIDmay relate to that, may have picked up another of the myriad of viral infections going around creating an acute bronchitis. At any rateappears safe for home. Finish a burst of prednisone, close outpatient follow-up with PCPif any recurrence/persistence/etc.then would work-up further considering PFTs/chest CT/etc.but I anticipate her getting totally better from this. Otherwise as above Resident Activity Tracking Resident Involvement: Resident Care Provided Care Provided: Adult Hospital Medicine
--- NOTE | 2022-03-26 17:35 | Communication Note ---
Date of Service: March 26, 2022 By CMS guidelines, a determination that the admission or continued stay is not medically necessary has been made by a member of the UR committee and yovana burnham for this hospital stay, therefore a Code 44 will be completed and the Inpatient admission will be changed to outpatient.
--- NOTE | 2022-03-26 17:40 | Communication Note ---
Date of Service: March 26, 2022 By CMS guidelines, a determination that the admission or continued stay is not medically necessary has been made by a member of the UR committee and a physician for this hospital stay, therefore a Code 44 will be completed and the Inpatient admission will be changed to outpatient.
--- NOTE | 2022-03-26 19:30 | Billing Data ---
Date of Service March 26, 2022 Coding Level of Care Code INT OBSERVATION CARE 72M LVL 3
--- NOTE | 2022-03-26 19:39 | Billing Data ---
Date of Service March 26, 2022 Coding Level of Care Code D/C DAY MANAGEMENT <30 MINS
--- NOTE | 2022-03-26 22:03 | XCELERA ---
[id number]
--- NOTE | 2022-03-27 23:13 | Electrocardiogram Report ---
Test Reason : Blood Pressure : / mmHG Vent. Rate : 105 BPM Atrial Rate : 105 BPM P-R Int : 216 ms QRS Dur : 066 ms QT Int : 322 ms P-R-T Axes : 077 070 055 degrees QTc Int : 425 ms Sinus tachycardia with 1st degree A-V block Cannot rule out Anterior infarct , age undetermined T wave abnormality, consider anterior ischemia Abnormal ECG No previous ECGs available Confirmed by Jose Pham ([id number]) on 03/27/2022 11:12:53 PM Referred By: Lala Garcia Confirmed By:Jose Pham
--- NOTE | 2022-03-27 23:37 | Electrocardiogram Report ---
Test Reason : Blood Pressure : / mmHG Vent. Rate : 104 BPM Atrial Rate : 104 BPM P-R Int : 198 ms QRS Dur : 072 ms QT Int : 356 ms P-R-T Axes : 072 042 035 degrees QTc Int : 468 ms Sinus tachycardia Possible Left atrial enlargement Abnormal ECG When compared with ECG of 25-MAR-2022 17:22, No significant change was found Confirmed by Jose Pham ([id number]) on 03/27/2022 11:36:47 PM Referred By: Lala Garcia Confirmed By:Jose Pham
== END 2022-03-26 18:29 | disposition home or self-care (01) ==
LOC: ED 17:11 → INTOOBSV 21:46 → SUATTDRO 21:46 → 2E 21:46
DX: I10 Essential (primary) hypertension; Z86.16 Personal history of COVID-19; K21.9 Gastro-esophageal reflux disease without esophagitis; R79.89 Other specified abnormal findings of blood chemistry; J45.901 Unspecified asthma with (acute) exacerbation; Z79.899 Other long term (current) drug therapy

== ENCOUNTER 2024-08-13 08:00 | Observation (INO) ==
--- NOTE | 2024-07-05 13:27 | PAT Medication Instructions ---
Medication Instructions Date of Service July 05, 2024 Home Medications cholecalciferol (vitamin D3) 25 mcg (1,000 unit) tablet 1,000 units PO QAM multivitamin 1 tab PO QAM vit C-vit U-ohudcm-ponjxhgl-omega 3 100 mg-15 unit-2 mg-100 mg capsule 1 cap PO DAILY atenolol 25 mg tablet 25 mg PO QAM levothyroxine 50 mcg tablet 50 mcg PO QAM lisinopril 20 mg-hydrochlorothiazide 12.5 mg tablet 1 tab PO QAM omeprazole 20 mg capsule,delayed release 20 mg PO QAM rosuvastatin 10 mg tablet 10 mg PO QAM sertraline 50 mg tablet 50 mg PO QAM MEDICATION INSTRUCTIONS: STOP taking 2 weeks before surgery vit C-vit B-jrmwqp-ueimashf-omega 3 100 mg-15 unit-2 mg-100 mg capsule 1 cap PO DAILY DO NOT take the morning of surgery lisinopril 20 mg-hydrochlorothiazide 12.5 mg tablet 1 tab PO QAM cholecalciferol (vitamin D3) 25 mcg (1,000 unit) tablet 1,000 units PO QAM multivitamin 1 tab PO QAM Take morning of surgery With a small sip of water, OTHERWISE NOTHING TO EAT OR DRINK AFTER MIDNIGHT: atenolol 25 mg tablet 25 mg PO QAM levothyroxine 50 mcg tablet 50 mcg PO QAM omeprazole 20 mg capsule,delayed release 20 mg PO QAM rosuvastatin 10 mg tablet 10 mg PO QAM sertraline 50 mg tablet 50 mg PO QAM Other Notes If you have any questions please call us at [phone] or [phone] or [phone] or [phone]
--- NOTE | 2024-07-12 10:25 | Anesthesiology Consultation ---
Date of Service July 12, 2024 Assessment & Plan (1) Encounter for pre-operative examination: - Case discussed in detail with Dr. Welch who advised nothing further is needed and patient is acceptable to proceed. - Outpatient joint assessment: Patient is currently scheduled for inpatient pathway. If re-evaluated and patient/surgeon requests outpatient pathway, patient is acceptable candidate for outpatient joint program from anesthesia standpoint pending surgeon's office assessment of pt motivation/sup port/completion of same day joint program preop requirements. Chart Review Chart Review: Acceptable Risk for Surgery and Patient seen in Pre Admission Testing Teaching & Discussion Pre-Anesthesia Teaching/Discussion Notes: Instructed NPO after midnight before surgery, except medications with 15 cc of water. Medication instructions provided according to the PAT guidelines. History Surgery Operation Date: 08/13/24 10:00 Proposed Procedures p Right Total Knee Arthroplasty - Conrad Diaz DO Height/Weight Height: 5 ft 1 in Weight: 71.2 kg Allergies Allergy/AdvReac Type Severity Reaction Status Date / Time No Known Allergies Allergy Verified 06/30/24 14:04 Medications Home Medications Medication Instructions Recorded Confirmed Last Taken cholecalciferol (vitamin D3) 25 1,000 units PO QAM 01/14/19 06/30/24 04/20/19 08:00 mcg (1,000 unit) tablet multivitamin 1 tab PO QAM 01/14/19 06/30/24 04/20/19 08:00 vit C-vit F-zkgsjz-efdmxbuq-omega 1 cap PO DAILY 04/13/24 06/30/24 Unknown 3 100 mg-15 unit-2 mg-100 mg capsule atenolol 25 mg tablet 25 mg PO QAM 06/30/24 06/30/24 Unknown levothyroxine 50 mcg tablet 50 mcg PO QAM 06/30/24 06/30/24 Unknown lisinopril 20 1 tab PO QAM 06/30/24 06/30/24 Unknown mg-hydrochlorothiazide 12.5 mg tablet omeprazole 20 mg capsule,delayed 20 mg PO QAM 06/30/24 06/30/24 Unknown release rosuvastatin 10 mg tablet 10 mg PO QAM 06/30/24 06/30/24 Unknown sertraline 50 mg tablet 50 mg PO QAM 06/30/24 06/30/24 Unknown Past Medical History Medical History (Updated 07/12/24 @ 10:37 by Tiffany Lin PA-C) Depression with anxiety GERD (gastroesophageal reflux disease) controlled, stable per pt History of COVID-19 (2021) developed asthma post covid, has now resolved History of melanoma upper back s/p excision Hyperlipidemia Hypertension controlled, stable per pt Hypothyroidism Internal derangement of knee Mild intermittent asthma (2021) following covid in 2021, had been admitted, saw pulm and then cleared, no longer uses inhaler Osteopenia Patient denies h/o stroke, seizures, heart attack, heart failure, DM, blood clots/DVTs or blood transfusions. Exercise / Class Metabolic Activity II 4-5 Yardwork/Stairs/Walk up hill (denies chest discomfort or shortness of b reath with one flight of stairs) Past Family History Family History Mother Leukemia Cancer Hypertension Gall bladder disease Family history of diabetes mellitus Son Cancer Sister Hypertension Gall bladder disease Father Hypertension Grandmother (Maternal) Family history of diabetes mellitus Other No family history of adverse response to anesthesia Denies family history of Ovarian cancer Prostate cancer Myocardial infarction Breast cancer Colorectal cancer Past Surgical History Surgical History History of dental surgery dental implant x 2, 2013 and 2022 History of left breast biopsy benign History of tooth extraction Hx of colonoscopy Hx of melanoma excision Past Anesthesia History No Hx of Anesthesia Complications and No Family Hx of Anesthesia Complications History of PONV No Hx of PONV and Hx of Motion Sickness Social History Smoking Status: Never smoker Do You Dip or Chew Tobacco: No Hx Alcohol Use: No Hx Substance Use: No substance use type: does not use Review of Systems Patient denies chest pain, shortness of breath, dyspnea on exertion, snoring, witnessed apneas, fever, chills, cough, wheezing, or palpitations. Physical Exam Vital Signs Vitals BP 138/84 P 67 TEMP 97.7 SP02 96% on RA RESP 19 Physical Patient resting comfortably in chair in no acute distress, alert and oriented, responding appropriately throughout visit Full cervical extension range of motion without pain TMD 3.5 finger breadths Mallampati Score 2 Dentition: several implants and several caps/crowns, denies chipped or loose teeth, or bridges Lungs: normal respiratory effort. Good air movement, clear throughout to auscultation, no adventitious breath sounds Cardiac: regular rate and rhythm, no murmurs noted Carotid arteries: negative bruit bilat Lab Results Anesthesia Preop Results Results Anesthesia Widget: WBC 7.52 K/ul (4.8-10.8) 07/12/24 Hgb 12.6 g/dl (12.0-16.0) 07/12/24 Hct 38.2 % (37.0-47.0) 07/12/24 Plt 220 K/uL (130-400) 07/12/24 Na 140 mmol/L (136-145) 07/12/24 K 4.1 mmol/L (3.5-5.1) 07/12/24 Cl 102 mmol/L (98-107) 07/12/24 CO2 31 mmol/L (21-32) 07/12/24 BUN 28 mg/dl (6-23) H 07/12/24 Creat 1.26 mg/dl (0.6-1.2) H 07/12/24 Glucose Level 96 mg/dl (70-99(Fasting)) 07/12/24 PT 10.3 Seconds (9.0-12.0) 07/12/24 PTT 27 Seconds (21-31) 07/12/24 INR 0.9 (0.9-1.1) 07/12/24 Blood Type A Positive 07/12/24 Antibody Screen NEGATIVE 07/12/24 Testing Electrocardiogram Date: 07/12/24 Sinus bradycardia with 1st degree AV block, rate 57 bpm Cannot rule out inferior infarct, age undetermined ST & T wave abnormality, consider anterior ischemia Ventricular rate has decreased by 51 bpm T wave inversion more evident in anterior leads vs 04/26/22 EKG Chest X-Ray Date: 07/12/24 There is a Bochdalek hernia at the left diaphragmatic surface. There is no airspace opacity or pleural effusion. The heart and pulmonary vascularity are unremarkable. There are degenerative changes throughout the dorsal spine. IMPRESSION: No acute process. Echocardiogram Date: 03/25/22 LVEF 60-65% No regional wall motion abnormalities Mild cLVH No significant valvular abnormalities Possible very small pericardial effusion without echocardiographic evidence of tamponade physiology
--- NOTE | 2024-08-12 13:59 | History & Physical Report ---
Date of Service August 12, 2024 Assessment & Plan (1) Osteoarthritis of right knee: We will proceed with a right total knee arthroplasty. Postoperatively she will be started on aspirin for DVT prophylaxis and kept overnight in the hospital for postop medical management. She plans to have the hospital set up home health for discharge. History of Present Illness Chief Complaint: Osteoarthritis of the right knee. Primary Care Provider: Lala Garcia MD Denise is a pleasant 74-year-old female who has been dealing with chronic increasing right knee pain. X-rays and clinical examination have been diagnostic for advanced osteoarthritis of the right knee. After failed conservative treatment, she has elected to proceed with a right total knee arthroplasty.. Allergies Allergy/AdvReac Type Severity Reaction Status Date / Time No Known Allergies Allergy Verified 08/06/24 11:22 Home Medications Medication Instructions Recorded Confirmed Type cholecalciferol (vitamin D3) 25 1,000 units PO QAM 01/14/19 08/06/24 History mcg (1,000 unit) tablet multivitamin 1 tab PO QAM 01/14/19 08/06/24 History vit C-vit V-ykmyya-krvfjkst-omega 1 cap PO DAILY 04/13/24 08/06/24 History 3 100 mg-15 unit-2 mg-100 mg capsule atenolol 25 mg tablet 25 mg PO QAM 06/30/24 08/06/24 History levothyroxine 50 mcg tablet 50 mcg PO QAM 06/30/24 08/06/24 History lisinopril 20 1 tab PO QAM 06/30/24 08/06/24 History mg-hydrochlorothiazide 12.5 mg tablet omeprazole 20 mg capsule,delayed 20 mg PO QAM 06/30/24 08/06/24 History release rosuvastatin 10 mg tablet 10 mg PO QAM 06/30/24 08/06/24 History sertraline 50 mg tablet 50 mg PO QAM 06/30/24 08/06/24 History Past Med/Surg History Problem List Hyperlipidemia (Chronic) Mild intermittent asthma (Chronic) Hypothyroidism (Chronic) GERD (gastroesophageal reflux disease) (Chronic) Osteopenia (Chronic) Hypertension (Chronic) Medical History Internal derangement of knee Depression with anxiety Hypertension controlled, stable per pt Hypothyroidism History of COVID-19 (2021) developed asthma post covid, has now resolved Mild intermittent asthma (2021) following covid in 2021, had been admitted, saw pulm and then cleared, no longer uses inhaler Osteopenia GERD (gastroesophageal reflux disease) controlled, stable per pt Hyperlipidemia History of melanoma upper back s/p excision Surgical History Hx of melanoma excision Hx of colonoscopy History of left breast biopsy benign History of dental surgery dental implant x 2, 2013 and 2022 History of tooth extraction Family History Mother Leukemia Cancer Hypertension Gall bladder disease Family history of diabetes mellitus Son Cancer Sister Hypertension Gall bladder disease Father Hypertension Grandmother (Maternal) Family history of diabetes mellitus Other No family history of adverse response to anesthesia Denies family history of Ovarian cancer Prostate cancer Myocardial infarction Breast cancer Colorectal cancer Social History Smoking Status: Never smoker Second Hand Exposure: No; Do You Dip or Chew Tobacco: No; Tobacco Cessation Education Requested by Patient: No Hx Alcohol Use: No Hx Substance Use: No Preferred Language: French Communication Ability: Effective Visual Impairment: No Limitations Hearing Ability: Normal Kier Tender Required: No Beliefs That Will Affect Care: None marital status: Current Living Situation: Spouse current occupational status: retired 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 Physical Exam Physical exam of the right knee she has a slight varus deformity. She has tenderness palpation distal medial femoral condyle and over the medial joint line.. Constitutional WD/WN, vitals as above Eyes PERRL, conjunctivae normal, anicteric sclerae ENMT external ear and nose normal, oropharynx normal Neck trachea midline, no thyromegaly Respiratory normal respiratory effort Cardiovascular RRR, no murmur, no edema Gastrointestinal (Abdomen) normal bowel sounds, soft, nontender, no hepatosplenomegaly Psychiatric A+Ox3, euthymic affect Results & Data Results & Data Laboratory Results . Diagnostic Findings X-rays of the right knee show advanced osteoarthritis with joint space narrowing, osteophyte formation, and glod-jf-pxkw articulation.. PG Care Time/CCT Total # of Minutes Spent Total Time Spent with Patient: Total time spent is greater than 50% in coordination of care (as documented) at patient's floor/unit and/or counseling patient: Coding Level of Care Code None Diagnoses Osteoarthritis of right knee M17.11
[~2024-08-13 08:00] MED LIST: BUPIVACAINE 0.25% PF 30 ML VIAL ONE; BUPIVACAINE 0.5 % 5 MG/1 ML PF 10ML VIAL ONE; DEXAMETHASONE SOD INJ 4 MG/ML VIAL ONE; EPINEPHrine INJ 1 MG/ML AMP ONE
[2024-08-13] MEDS ORDERED: KETAMINE HCL 10MG/ML SYR ONE (08:13)
[2024-08-13] MEDS ORDERED: MIDAZOLAM HCL 1 MG/ML 2ML VIAL ONE (08:13)
[2024-08-13] MEDS ORDERED: LIDOCAINE 2% 2 ML VIAL/AMP(20MG/ML) INFIL ONE (08:13)
[2024-08-13] MEDS ORDERED: GLYCOPYRROLATE 0.2 MG/ML VIAL ONE (08:13)
[2024-08-13] MEDS ORDERED: PROPOFOL IV EMULSION 10 MG/ML 20 ML VIAL IV ONE (08:13)
[2024-08-13] MEDS ORDERED: ONDANSETRON INJ 2 MG/ML 2 ML VIAL ONE (08:13)
[2024-08-13] MEDS: GABAPENTIN 300 MG CAP PO SCH (08:24)
[2024-08-13] MEDS: ACETAMINOPHEN 500 MG TAB PO SCH ×2 (08:24→16:39)
[2024-08-13] MEDS: FAMOTIDINE 20 MG TAB PO SCH (08:24)
[2024-08-13] MEDS: LR 60ML/HR IV SCH (08:24)
[2024-08-13] MEDS ORDERED: PHENYLEPHRINE 100MCG/ML 5ML SYR ONE (08:26)
[2024-08-13] MEDS: dexAMETHasone**PF** 10 MG/ML VIAL IV SCH (08:33)
[2024-08-13] MEDS: LR 500ML BOLUS, THEN 15ML/HR IV SCH (08:39)
--- NOTE | 2024-08-13 09:08 | History & Physical Bridge Note ---
Date of Service August 13, 2024 History & Physical Bridge Note I have examined the patient, reviewed the History & Physical and in the interval since the performance of the History & Physical I have noted the following changes of clinical significance: no changes noted
[2024-08-13] MEDS ORDERED: ePHEDrine sulfate 50 MG/ML AMP IV PRN (09:45)
[2024-08-13] MEDS ORDERED: fentaNYL citrate PF 100 MCG/2 ML VIAL IV PRN (09:45)
[2024-08-13] MEDS ORDERED: ATROPINE SULFATE 0.1 MG/ML 10ML SYR IV PRN (09:45)
[2024-08-13] MEDS ORDERED: ONDANSETRON INJ 2 MG/ML 2 ML VIAL IV PRN ×2 (09:45→15:16)
[2024-08-13] MEDS ORDERED: PROMETHAZINE HCL 6.25 MG in SODIUM CHLORIDE 0.9% 50 ML IV PRN (09:45)
[2024-08-13] MEDS: TRANEXAMIC ACID 1,000 MG **IV Pre-op IV SCH (10:33)
[2024-08-13] MEDS: ceFAZolin 2000MG 2,000 MG/15 ML SYR IV SCH (10:46)
[2024-08-13] MEDS: ORTHO JOINT ANESTHETIC ONE (11:25)
[2024-08-13] MEDS: ROPIV 0.5% 246mg, Ketorolac 30mg, EPINEPHrine 0.5mg in NSS INFIL SCH (11:25)
[2024-08-13] MEDS: TRANEXAMIC ACID 1,000 MG **IV Intra-op IV SCH (11:55)
--- NOTE | 2024-08-13 12:03 | Operative Report ---
PG Post Operative Report Pre & Post Diagnosis Operation Date: 08/13/24 10:00 Pre-Op Diagnosis: Right Knee Osteoarthritis Post-Op Diagnosis: Right Knee Osteoarthritis I identified the patient and participated in the time-out.: Yes Procedure Operation Date: 08/13/24 10:00 Actual Procedures p Right Total Knee Arthroplasty(Right) - Conrad Diaz DO Surgeon Conrad Diaz DO Residential Advisor Dewayne Santana PA-C Estimated Blood Loss 50 Findings Consistent with Post-Op Diagnosis Specimens Right femoral and tibial bone Description of Procedure Implants used: I used a Chris Persona total knee arthroplasty system with a size 6 standard PS femur, D tibia, 28 oval patella, and a size 12 CPS polyethylene bearing. All components were cemented in place with Biomet cement. Denise arrived [facility] for the above procedure. She was seen in the preoperative holding area and the operative extremity was identified and signed. She was given a preoperative antibiotic, TXA, a spinal anesthetic and an adductor nerve block. She was taken back to the operating room and laid on the table in supine position. She was given basic sedation. The operative knee was then prepped and draped in sterile fashion. A timeout was done, and the patient and the operative extremity was properly identified. A midline incision was made directly over the patella. Dissection was taken down to the extensor mechanism. A medial parapatellar arthrotomy was used. The medial retinaculum was released and the fat pad was mostly excised. The knee was flexed and the ACL, PCL, and meniscus were removed. A drill was sent down the center of the femoral canal followed by an intramedullary derick. Off that derick a distal femoral cutting block was placed. 9 mm was resected off the distal femur at 5 of valgus. A posterior referencing AP sizing guide was then placed on the distal femur. The femur measured to be a size 6. 2 drill holes were placed in 3 of external rotation. A 4-in-1 cutting block was then impacted into place. Anterior, posterior, and chamfer cuts were then made. The proximal tibia was then exposed. An external tibial alignment guide was placed. A tibial cut guide was then anchored in place and the proximal tibia was then resected. The posterior aspect of the knee was then opened up and any additional meniscus fragments and osteophytes were removed. The tibia measured to be a size D. The tibial plate was then placed in the appropriate rotation and the tibia was drilled and punched. Trial components were then placed. I used a size 12 CPS polyethylene insert. The knee was brought through a full range of motion and felt to be stable. The peg holes for the femoral component were then drilled. The patella was then everted and 9 mm was resected off the posterior aspect of the patella. The patella measured to be a size 28 oval. 3 peg holes were then drilled. A trial patella was placed. The knee was once again brought through a full range of motion and felt to be stable. Trial components were then removed. The surrounding soft tissues were injected with 100 cc of an orthopedic pain control cocktail. All components were then cemented into place with Biomet cement. The final polyethylene insert was then snapped into place. Once cement was dry the tourniquet was deflated. Hemostasis was obtained. A dilute betadyne lavage was then done for 3 minutes. The joint was then irrigated with normal saline solution. The medial parapatellar arthrotomy was then closed with #1 Vicryl suture. The skin was closed with 2-0 Vicryl, 3-0V lock suture, and alex. A soft compressive dressing was placed. She was then transferred to a hospital bed and taken to the postanesthesia care unit in stable condition. She tolerated the procedure well. Dewayne Santana PA-C, was present for the entire procedure. He was critical for patient positioning, prepping, draping, retraction exposure, wound closure and application of sterile dressing. I attest to the content of the Intraoperative Record and any orders documented therein. Any exceptions are noted below.
--- NOTE | 2024-08-13 12:58 | XRay Report ---
XR knee RT 1 or 2V routine CLINICAL HISTORY: Surgical Post Op COMPARISON: None FINDINGS: Right knee prosthesis shows no hardware complication. There is expected soft tissue gas. S kin alex are present. IMPRESSION: Unremarkable postoperative exam. ACT 112: Negative or not required by law. Electronically signed by: Tray Bolton M.D. 08/13/2024 12:56 PM
--- NOTE | 2024-08-13 13:07 | Anesthesiology Progress Note ---
Date of Service August 13, 2024 Anesthesia Post Procedure Vital Signs Vital Signs: Temp Pulse Pulse Resp BP Pulse Ox O2 Del Method 08/13/24 12:50 89 15 100/59 L 92 Room Air 08/13/24 12:40 90 14 91/54 L 95 Room Air 08/13/24 12:30 98 H 20 102/61 99 Oxymask 08/13/24 12:24 36.6 C 96 H 17 89/49 L 99 Oxymask 08/13/24 08:14 36.7 C 64 16 145/88 H 97 Room Air O2 Flow Rate 08/13/24 12:50 08/13/24 12:40 08/13/24 12:30 5 08/13/24 12:24 5 08/13/24 08:14 Pain Intensity Right Knee: Pain Intensity: 7 Transfer of Care Handoff Completed per policy Notes Mental Status: alert / awake / arousable Patient Amnestic to Procedure: Yes Nausea / Vomiting: adequately controlled Pain: adequately controlled Airway Patency, RR, SpO2: stable & adequate BP & HR: stable & adequate Hydration State: stable & adequate Neuraxial Anesthesia: was administered and sensory block is resolving Anesthetic Complications: no major complications apparent and Pt Satisfied with anesthetic care
[2024-08-13] MEDS ORDERED: oxyCODONE HCL IR 5 MG TAB (IMMEDIATE RELEASE) PO PRN (15:16)
[2024-08-13] MEDS ORDERED: HYDROmorphone INJ 0.5 MG/0.5 ML SYR IV PRN (15:16)
[2024-08-13] MEDS ORDERED: bisacodyL 10 MG SUPP PR PRN (15:16)
[2024-08-13] MEDS ORDERED: METOCLOPRAMIDE HCL INJ 5 MG/ML 2 ML VIAL IV PRN (15:16)
[2024-08-13] MEDS ORDERED: NALOXONE HCL 0.4 MG/1 ML VIAL/CARP IV PRN (15:16)
[2024-08-13] MEDS ORDERED: MAGNESIUM HYDROXIDE SUSP 30 ML UDC PO PRN (15:16)
[2024-08-13] MEDS: KETOROLAC TROMETHAMINE 15 MG/ML VIAL IV SCH (16:40)
[2024-08-13] MEDS: ceFAZolin 1000MG 1,000 MG/7.5 ML SYR IV SCH (17:53)
[2024-08-13] MEDS: DOCUSATE SODIUM 100 MG CAP PO SCH (21:25)
[2024-08-13] MEDS: SENNA 8.6 MG TAB PO SCH (21:25)
[2024-08-13] MEDS: ASPIRIN 81 MG ECTAB PO SCH (21:25)
[2024-08-14] MEDS: LEVOTHYROXINE SODIUM 50 MCG TABLET PO SCH (05:58)
--- NOTE | 2024-08-14 07:09 | Orthopedic Progress Note ---
Date of Service August 14, 2024 Assessment & Plan (1) Status post right knee replacement: Overall she is doing fairly well. She is not having much pain in the right knee. She will be seen by physical therapy today for ambulation and range of motion exercises. The nursing staff can change her dressing after physical therapy. She is on aspirin for DVT prophylaxis. She can be discharged to home later today. She will follow-up with orthopedics in 2 weeks. Lokesh Walker was seen and examined at bedside this morning. Overall she is doing fairly well. She is not having much pain in the right knee. She has been up and ambulating to the bathroom. She has no complaints.. Review of Systems All systems reviewed & are unremarkable except as noted in HPI & below. Physical Exam On physical exam of the right knee, the dressing is clean and dry. Her leg is out full extension. She has active dorsiflexion plantarflexion of her right ankle.. Results & Data Results & Data Laboratory Results . Diagnostic Findings Postoperative x-rays of the right knee show the prosthesis to be in anatomic alignment without any evidence of fracture complication, or loosening.. PG Care Time/CCT Total # of Minutes Spent Total Time Spent with Patient: Total time spent is greater than 50% in coordination of care (as documented) at patient's floor/unit and/or counseling patient: Coding Level of Care Code 45769 Post Operative Follow-Up Diagnoses Status post right knee replacement Z96.651
--- NOTE | 2024-08-14 07:13 | Discharge Summary ---
Date of Service August 14, 2024 Admission HPI (Per Admitting) Denise is a pleasant 74-year-old female who has been dealing with chronic increasing right knee pain. X-rays and clinical examination have been diagnostic for advanced osteoarthritis of the right knee. After failed conservative treatment, she has elected to proceed with a right total knee arthroplasty.. Admission Exam (Per Admitting) Physical exam of the right knee she has a slight varus deformity. She has tenderness palpation distal medial femoral condyle and over the medial joint line.. Principal Diagnosis Same as "Discharge Diagnosis" noted below under Discharge Instructions. Discharge Exam On physical exam of the right knee, the dressing is clean and dry. Her leg is out full extension. She has active dorsiflexion plantarflexion of her right ankle.. Discharge Data Procedures Performed Operation Date: 08/13/24 10:00 Actual Procedures p Right Total Knee Arthroplasty(Right) - Conrad Diaz DO Ordered Studies 08/13/24 05:00 US - OR guided needle placemen Routine Hospital Course (1) Status post right knee replacement: On August 13, 2024 Zeyad arrived in [facility] and underwent a right knee replacement without complication. She had a spinal anesthetic. Postoperatively, she was started on aspirin for DVT prophylaxis and transferred to the general orthopedic floors. Her hospital course was uneventful. On postop day #1, her vital signs were stable and her pain was well-controlled. She was able to participate well with physical therapy doing ambulation and range of motion exercises. She was then discharged to home. She will follow-up with orthopedics in 2 weeks. PG Care Time/CCT Total # of Minutes Spent Total Time Spent with Patient: Total time spent is greater than 50% in coordination of care (as documented) at patient's floor/unit and/or counseling patient: Discharge Plan Discharge Items Patient Disposition: Home - Self-Care Reason For Visit: Right Knee Arthritis Discharge Diagnosis: Right knee replacement Activity: Per Instructions section Non-emergency contact: Surgeon Call non-emergency contact if: your wound has increased redness and your wound has increased drainage Follow-up/Referrals: Lala Garcia MD [Primary Care Provider] - Diet: Regular Addtl Attending Provider Instructions: Activity and Therapy Recommendations: * If you are using [facility] then therapy will be provided at your home until they feel you have accomplished all of your goals. * If you are using [facility] then Physical Therapy will be provided until they feel you are ready to start Outpatient Physical Therapy. * If you are not using home therapy then Outpatient Physical Therapy should start about 3-5 days from your day of surgery. Therapy will last about 6-10 weeks * It is important not to put a pillow under your knee when you are relaxing or sleeping. It is just as important to make sure you are getting your knee perfectly straight as it is to regain your knee bend. * You were shown a series of exercises in the hospital. Do these exercises three times each day including the exercises you were shown in physical therapy. * Get up and walk several times each day. For the first four weeks, try not to stand or walk for more than one hour at a time. If you do stand or walk for more than one hour, you will not hurt anything, but your leg will likely swell. * As you feel comfortable, you may change from the walker or crutches to a cane and then to independent walking. Medications: * Narcotic You will likely be sent home from the hospital with a prescription for the narcotic pain medication that worked best throughout your stay. * Cefadroxil -take the antibiotic twice a day for 10 days to help prevent infection. * Aspirin Most patients will be required to take Aspirin 81mg twice a day for 6 weeks after surgery. This is obtained [id number] and a prescription is not necessary. * Other medications may be prescribed for specific circumstances. If you have any questions, please call the office at . * Resume previous home medications unless otherwise instructed TEDs/Elastic Stockings: The white elastic stockings help limit swelling and prevent blood clots from forming in your legs.~ The more you wear them, the more they work. Wear them for 2 weeks. Dressing Care: The dressing can be changed after physical therapy on postop day #1. Daily dry dressing changes for a few days, especially if the incision is still draining some. If the incision is not draining then you may leave the alex open to air. If there is a little bit of drainage or if the alex are getting stuck on your clothing then cover the incision with a dry dressing. The alex will be removed at your 2 week follow-up appointment. Showering: You may shower 5 days from the day of surgery as long as the incision is no longer draining. You may shower with the alex exposed. Let soapy water run over the alex and pat them dry. Do not scrub or soak the incision. Diet: You may resume your previous diet. Things To Watch For: * Drainage from the incision site that occurs more than one week after your surgery. * Increased redness at the incision site. * Fever above 102 degrees Fahrenheit. * Unusual chest pain or shortness of breath. * Call [facility] at with any of the above problems Follow-Up Visit: Follow-up with Dr. Diaz's office 2-3 weeks after your day of surgery. We will remove your alex and answer any questions. If you have any additional questions or concerns, Dr Diaz is usually in the office at the same time and will be available An appointment was probably scheduled when you signed-up for surgery in the office. If you have any questions call Office Instructions: More detailed instructions as well as Frequently Asked Questions were provided in a folder by our office when you signed-up for surgery. Please review these instructions when you get home. If you have any further questions or concerns, please feel free to call the office at [phone] Pending Studies at Discharge: No Stand-Alone Forms: My [facility] [address], Smoking Cessation Medications and DC Order Prescriptions: New aspirin 81 mg Tablet,Delayed Release (Dr/Ec) 81 mg PO BID 42 Days Qty: 84 0RF cefadroxil 500 mg capsule 500 mg PO BID 10 Days Qty: 20 0RF oxycodone 5 mg tablet 5 mg PO Q6H PRN (Reason: pain) Qty: 30 0RF Continued multivitamin tablet 1 tab PO QAM cholecalciferol (vitamin D3) 1,000 unit (25 mcg) tablet 1,000 units PO QAM vit C-vit [id number] pw-ikoz-[id number]-mg capsule 1 cap PO DAILY lisinopril-hydrochlorothiazide 20-12.5 mg tablet 1 tab PO QAM atenolol 25 mg tablet 25 mg PO QAM levothyroxine 50 mcg tablet 50 mcg PO QAM omeprazole 20 mg capsule,delayed release(DR/EC) 20 mg PO QAM sertraline 50 mg tablet 50 mg PO QAM rosuvastatin 10 mg tablet 10 mg PO QAM Discharge Orders: Discharge Order (Routine); Ordered 08/14/24 Ordered By: Conrad Diaz Admission Data Admit Date/Time: 08/13/24 12:30 Attending Provider: Conrad Diaz Admit Provider: Conrad Diaz Primary Care Provider: Lala Garcia Other Interventions: Discharge Summary Assessment (RN) Last Done: 08/14/24 10:36
[2024-08-14 07:39] VITALS: BP 119/68; PULSE 79; RESP 16; TEMP 98.1; O2SAT 92
[2024-08-14] MEDS: dexAMETHasone 4 MG TAB PO SCH (07:50)
[2024-08-14] MEDS: LISINOPRIL/HCTZ 20/12.5MG 1 TAB TAB PO SCH (07:50)
[2024-08-14] MEDS: MULTIVITAMIN TAB PO SCH (07:50)
[2024-08-14] MEDS: ATENOLOL 25 MG TABLET PO SCH (07:50)
[2024-08-14] MEDS: SERTRALINE HCL 50 MG TABLET PO SCH (07:51)
[2024-08-14] MEDS: ROSUVASTATIN CALCIUM 10 MG TAB PO SCH (07:51)
[2024-08-14] MEDS: PANTOprazole 40 MG TAB PO SCH (07:51)
== END 2024-08-14 11:10 | disposition home or self-care (01) ==
LOC: ASU 08:00 → PACUINP 08:00 → 3E 15:05